=== PATIENT | male | born 1970 | race Caucasian/White ===

== ENCOUNTER 2019-01-03 21:05 | Emergency (ER) | payer BC ==
[~2019-01-03] VITALS: Ht 180.3 cm; Wt 120.2 kg
[2019-01-03 22:59] VITALS: BP 119/68
[2019-01-03] MEDS ORDERED: cefTRIAXone SOD 1,000 MG VL IM ONE (23:30)
[2019-01-03] MEDS ORDERED: HYDROcodone-ACET 10/325MG TAB PO ONE (23:30)
== END 2019-01-04 06:34 | disposition home or self-care (01) ==
LOC: ER 21:10 → EEVIPCON 21:10 → ER 01-04 06:34
DX: L02.212 Cutaneous abscess of back [any part, except buttock and flank] (principal)
CPT/HCPCS: 96372; 99283; C1887; J0696

== ENCOUNTER 2019-01-04 21:48 | Emergency (ER) | payer BC ==
[~2019-01-04] VITALS: Ht 180.3 cm; Wt 165.6 kg
[2019-01-05] MEDS ORDERED: cefTRIAXone SOD 1,000 MG VL ONE (01:57)
[2019-01-05 02:03] VITALS: BP 141/83
[2019-01-05] MEDS ORDERED: HYDROcodone-ACET 10/325MG TAB PO ONE (02:15)
[2019-01-05] MEDS ORDERED: cefTRIAXone SOD 1,000 MG VL IM ONE (02:30)
== END 2019-01-05 02:31 | disposition home or self-care (01) ==
LOC: ER 21:57
DX: L02.212 Cutaneous abscess of back [any part, except buttock and flank] (principal)
CPT/HCPCS: 82962; 96372; 99283; J0696